=== PATIENT | male | born 1995 | race Asian ===

== ENCOUNTER 2018-11-14 10:00 | Emergency (ER) | payer OTHER ==
[2018-11-14 10:06] VITALS: BP 123/67; PULSE 80; TEMP 97; BMI 30.3
--- NOTE | 2018-11-14 10:30 | PDOC ---
History of Present Illness - General Chief Complaint: Pain Stated Complaint: PAIN Time Seen by Provider: 11/14/18 10:16 History Source: Patient Exam Limitations: No Limitations - History of Present Illness Travel History: No Initial Comments: 11/14/18 10:30 23-year-old male presents to ED with complaints of left scrotal and perianal pain for the past 2 months worsened with standing without penile discharge, difficulty urinating but does complain of a whitish substance from his anus 2 weeks ago after working out. Patient denies fever, chills redness, swelling or palpable bump to area. Patient states has been in a monogamous relationship and has no concerns for STD. Patient also denies history of variceal, hernia or hydrocele. Timing/Duration: reports: intermittent Quality: reports: mild Abdominal Pain Onset Location: reports: other (left testicle) Pain Radiation: reports: other (perineal) Activities at Onset: reports: none Aggravating Factors: improves with: Change in position Alleviating Factors: improves with: Rest Past History - Travel Traveled outside of the country in the last 30 days: No Close contact w/someone who was outside of country & ill: No - Past Medical History Allergies/Adverse Reactions: Allergies Allergy/AdvReac Type Severity Reaction Status Date / Time No Known Allergies Allergy Verified 11/14/18 10:06 COPD: No - Suicide/Smoking/Psychosocial Hx Smoking History: Never smoked Patient Lives Alone: No Lives with/in: spouse/SO Review of Systems - Review of Systems Able to Perform ROS?: No Is the patient limited Pashto proficient: No Constitutional: No: Symptoms Reported ABD/GI: No: Symptoms Reported : Yes: Pain, Testicular Pain (left). No: Discharge, Testicular Mass, Testicular Swelling, Lesions Musculoskeletal: No: Symptoms Reported Integumentary: No: Symptoms Reported Neurological: No: Symptoms reported Endocrine: No: Symptoms Reported *Physical Exam - Vital Signs Last Vital Signs Temp Pulse Resp BP Pulse Ox 97 F L 80 18 123/67 99 11/14/18 10:04 11/14/18 10:04 11/14/18 10:04 11/14/18 10:04 11/14/18 10:04 - Physical Exam General Appearance: Yes: Nourished, Appropriately Dressed. No: Apparent Distress Gastrointestinal/Abdominal: positive: Soft. negative: Tenderness Male Genitalia: positive: normal genitalia, testicular tenderness (mild left, normal cremasteric reflex). negative: discharge, testicular mass, epididymus tender, hernia Extremity: positive: Normal Capillary Refill Integumentary: positive: Other (no tenderness to perineal or rectal area. no redness or palpable masses noted) Neurologic: positive: Motor Strength 5/5 (ambulatory) Moderate Sedation - Procedure Monitoring Vital Signs: Procedure Monitoring Vital Signs Temperature 97 F L 11/14/18 10:04 Pulse Rate 80 11/14/18 10:04 Respiratory Rate 18 11/14/18 10:04 Blood Pressure 123/67 11/14/18 10:04 O2 Sat by Pulse Oximetry (%) 99 11/14/18 10:04 ED Treatment Course - RADIOLOGY Radiology Studies Ordered: Category Date Time Status SCROTUM AND CONTENTS US [US] Stat Ultrasound 11/14/18 10:21 Ordered Medical Decision Making - Medical Decision Making 11/14/18 10:41 Chief complaint: Left testicle intermittent pulling sensation to left testicle radiating to his perineal region over the past 2 months intermittently. Patient states pain began after working out but denies any and denies any previous injury to affected area. Patient also mentioned past from his rectum which I reviewed pictures which were taken by his . Temperature is noted with white shreds of toilet paper and not drainage. Exam: Mild left testicular tenderness otherwise normal healthy exam Plan: Scrotal ultrasound ordered 11/14/18 12:02 Ultrasound shows multiple punctate testicular calcifications. The testes appear unremarkable overall size and contour. There is no discrete mass lesion identified. This is very small right hydrocele noted. There is no left hydrocele noted. Epididymal structures appear unremarkable. *DC/Admit/Observation/Transfer Diagnosis at time of Disposition: Testicle pain - Discharge Dispostion Disposition: HOME Condition at time of disposition: Good - Referrals Referrals: Lupe Malik MD [Primary Care Provider] - Dexter Dominguez MD [Staff Physician] - - Patient Instructions Printed Discharge Instructions: DI for Testicular Pain Additional Instructions: Please follow up with your urologist. Please avoid movement that trigger your pain - Post Discharge Activity
== END 2018-11-14 12:17 | disposition home or self-care (01) ==
LOC: JERFT 10:00 → JER 10:00
DX: N50.812 Left testicular pain (principal)
CPT/HCPCS: 76870-TC; 99281-25

== ENCOUNTER 2018-11-24 19:42 | Emergency (ER) | payer OTHER ==
[2018-11-24 20:09] VITALS: BP 116/60; PULSE 108; TEMP 98.2; BMI 26.6
--- NOTE | 2018-11-24 20:09 | PDOC ---
Rapid Medical Evaluation Time Seen by Provider: 11/24/18 20:04 Medical Evaluation: Allergies Allergy/AdvReac Type Severity Reaction Status Date / Time No Known Allergies Allergy Verified 11/14/18 10:06 11/24/18 20:04 I have performed a brief in-person evaluation of this patient. The patient presents with a chief complaint of: lower back and perineal pain. Pt had U/s on 11/14 which showed small hydrocele. Unaqble to get appt with . Pertinent physical exam findings: deferred I have ordered the following: urine The patient will proceed to the ED for further evaluation. Discharge Disposition - Diagnosis Perineal pain in male - Referrals - Patient Instructions - Post Discharge Activity
--- NOTE | 2018-11-24 21:14 | PDOC ---
*Physical Exam - Vital Signs Last Vital Signs Temp Pulse Resp BP Pulse Ox 98.2 F 108 H 18 116/60 100 11/24/18 20:05 11/24/18 20:05 11/24/18 20:05 11/24/18 20:05 11/24/18 20:05 Medical Decision Making - Medical Decision Making 11/24/18 21:14 Patient seen by the advanced practice provider under my direct supervision. Ancillary testing reviewed as necessary. I agree with plan as outlined by the advanced practice provider. *DC/Admit/Observation/Transfer Diagnosis at time of Disposition: Perineal pain in male - Discharge Dispostion Disposition: HOME Condition at time of disposition: Stable - Referrals - Patient Instructions Additional Instructions: Thank you for choosing [facility]. It was a pleasure taking care of you. At this point, the cause of your pain is unclear Would recommend you follow-up with urology as scheduled and also f/u with your PCP. Return to the Emergency Department if your symptoms worsen or persist or have other concerning symptoms. - Post Discharge Activity
--- NOTE | 2018-11-24 22:11 | PDOC ---
History of Present Illness - General Chief Complaint: Back Pain Stated Complaint: LWR BACK PAIN/PROSTATE PAIN Time Seen by Provider: 11/24/18 20:04 History Source: Patient Exam Limitations: No Limitations Past History - Past Medical History Allergies/Adverse Reactions: Allergies Allergy/AdvReac Type Severity Reaction Status Date / Time No Known Allergies Allergy Verified 11/14/18 10:06 COPD: No - Suicide/Smoking/Psychosocial Hx Smoking History: Never smoked Have you smoked in the past 12 months: No Information on smoking cessation initiated: No Hx Alcohol Use: No Drug/Substance Use Hx: No *Physical Exam - Vital Signs Last Vital Signs Temp Pulse Resp BP Pulse Ox 98.2 F 108 H 18 116/60 100 11/24/18 20:05 11/24/18 20:05 11/24/18 20:05 11/24/18 20:05 11/24/18 20:05 - Physical Exam General Appearance: No: Apparent Distress Respiratory/Chest: positive: Lungs Clear, Normal Breath Sounds. negative: Respiratory Distress Cardiovascular: positive: Regular Rhythm, Regular Rate, S1, S2. negative: Murmur Gastrointestinal/Abdominal: positive: Normal Bowel Sounds, Soft. negative: Tender, Distended, Guarding, Rebound Male Genitalia: positive: normal genitalia, other (Perineal exam unremarkable ( no unusual rashes, lesions, open wounds/cuts or other anomaly noted)). negative : discharge, testicular tenderness Integumentary: positive: Normal Color Neurologic: positive: Alert, Normal Mood/Affect Moderate Sedation - Procedure Monitoring Vital Signs: Procedure Monitoring Vital Signs Temperature 98.2 F 11/24/18 20:05 Pulse Rate 108 H 11/24/18 20:05 Respiratory Rate 18 11/24/18 20:05 Blood Pressure 116/60 11/24/18 20:05 O2 Sat by Pulse Oximetry (%) 100 11/24/18 20:05 Medical Decision Making - Medical Decision Making 23 y/o M with no sig pmh presents with perineal pain and occasional itching x 1 month. Saw his PCP and was given ?cream (possibly antifungal) which did not help. Also tried Hydrocortisone which did not help. Was in ER last week for similar complaint and had testicular sono with no acute findings noted. Patient denies fever, sob, cp, abd pain, n/v/d, urinary complaints, penile discharge, testicular pain, penile pain, unusual rashes. Patient was referred to urology on last ER visit and states appointment is not until 12/06 PE unremarkable Unclear cause of sxs - advised f/u with urology and PCP for now D/W Dr. Marinelli 11/24/18 22:08 *DC/Admit/Observation/Transfer Diagnosis at time of Disposition: Perineal pain in male - Discharge Dispostion Disposition: HOME Condition at time of disposition: Stable Decision to Admit order: No - Referrals - Patient Instructions Additional Instructions: Thank you for choosing [facility]. It was a pleasure taking care of you. At this point, the cause of your pain is unclear Would recommend you follow-up with urology as scheduled and also f/u with your PCP. Return to the Emergency Department if your symptoms worsen or persist or have other concerning symptoms. - Post Discharge Activity
== END 2018-11-24 22:13 | disposition home or self-care (01) ==
LOC: JER 19:42
DX: K90.49 Malabsorption due to intolerance, not elsewhere classified (principal)
CPT/HCPCS: 99282-25

== ENCOUNTER 2018-11-25 19:30 | Emergency (ER) | payer OTHER ==
[2018-11-25 19:36] VITALS: BP 144/81; PULSE 98; TEMP 97.8; BMI 29.0
--- NOTE | 2018-11-25 19:38 | PDOC ---
History of Present Illness - General History Source: Patient Exam Limitations: No Limitations - History of Present Illness Initial Comments: 11/25/18 20:27 The patient is a 23 year old male, with no significant past medical history, who presents to the ED complaining of abdominal pain, rectal pain with discharge , constipation, nausea and vomit for almost a month. The patient notes that he came to the ED on 11/14/18 and 11/24/18 for similar symptoms and was discharged after improvement of symptoms. He reports that his abdominal pain is localized in the left upper quadrant, rating it a 4/10 in severity. He notes that the pain radiates to his lower abdomen. He denies any modifying factors. He denies any blood discharge from the rectum. He notes that his vomit is nonbilious and nonbloody. He notes that he traveled to [facility] 5 months ago. He reports that he was 8 months ago and denies any rectal intercourse. The patient denies chest pain, shortness of breath, headache and dizziness. Denies fever, chills, diarrhea, dysuria, frequency, urgency and hematuria. Allergies: None Past surgical history: None reported Social History: No alcohol, tobacco or drug use reported <Eduar Hernandez - Last Filed: 11/25/18 20:27> <Jesica Glaser - Last Filed: 11/25/18 23:34> - General Chief Complaint: Pain Stated Complaint: ABD, RECTAL PAIN Time Seen by Provider: 11/25/18 19:38 Past History <Eduar Hernandez - Last Filed: 11/25/18 20:27> - Past Medical History COPD: No - Immunization History Immunization Up to Date: Yes - Suicide/Smoking/Psychosocial Hx Smoking History: Current some day smoker Have you smoked in the past 12 months: Yes Number of Cigarettes Smoked Daily: 1 Information on smoking cessation initiated: Yes Hx Alcohol Use: No Drug/Substance Use Hx: No <Jesica Glaser - Last Filed: 11/25/18 23:34> - Past Medical History Allergies/Adverse Reactions: Allergies Allergy/AdvReac Type Severity Reaction Status Date / Time No Known Allergies Allergy Verified 11/25/18 19:31 Home Medications: Ambulatory Orders NK [No Known Home Medication] 11/24/18 Review of Systems - Review of Systems Able to Perform ROS?: Yes Comments:: 11/25/18 20:27 GENERAL/CONSTITUTIONAL: No fever or chills. No weakness. HEAD, EYES, EARS, NOSE AND THROAT: No change in vision. No ear pain or discharge. No sore throat. GASTROINTESTINAL: (+) Abdominal pain, nausea, vomiting, constipation, Rectal pain with discharge. No diarrhea GENITOURINARY: No dysuria, frequency, or change in urination. CARDIOVASCULAR: No chest pain or shortness of breath. RESPIRATORY: No cough, wheezing, or hemoptysis. MUSCULOSKELETAL: No joint or muscle swelling or pain. No neck or back pain. SKIN: No rash NEUROLOGIC: No headache, vertigo, loss of consciousness, or change in strength/ sensation. ENDOCRINE: No increased thirst. No abnormal weight change. HEMATOLOGIC/LYMPHATIC: No anemia, easy bleeding, or history of blood clots. ALLERGIC/IMMUNOLOGIC: No hives or skin allergy. <Eduar Hernandez - Last Filed: 11/25/18 20:27> *Physical Exam - Vital Signs Last Vital Signs Temp Pulse Resp BP Pulse Ox 97.8 F 98 H 18 144/81 100 11/25/18 19:30 11/25/18 19:30 11/25/18 19:30 11/25/18 19:30 11/25/18 19:30 - Physical Exam Comments: 11/25/18 20:27 Constitutional: Awake, alert, oriented. No acute distress. Head: Normocephalic. Atraumatic Eyes: PERRL. EOMI. Conjunctivae are not pale. ENT: Mucous membranes are moist and intact. Posterior pharynx without exudates or erythema. Uvula midline. Neck: Supple. Full ROM. No lymphadenopathy. Cardiovascular: Regular rate. Regular rhythm. S1, S2 regular. Distal pulses are 2+ and symmetric. Pulmonary/Chest: No evidence of respiratory distress. Clear to auscultation bilaterally No wheezing, rales or rhonchi. Abdominal: (+) Diffused lower quadrant tenderness. Soft and non-distended. No rebound, guarding or rigidity. No organomegaly. No palpable masses. Good bowel sounds. Back: No CVA tenderness. Musculoskeletal: No edema. No cyanosis. No clubbing. Full range of motion in all extremities. Nocalf tenderness. Radial/pedal pulses are intact and 2+ bilaterally Skin: Skin is warm and dry. No petechiae. No purpura. Neurological: Alert and oriented to person, place, and time. Cranial nerves II -XII are grossly intact. Normal speech. Strength is grossly symmetric. No sensory deficits. <Eduar Hernandez - Last Filed: 11/25/18 20:27> - Vital Signs Last Vital Signs Temp Pulse Resp BP Pulse Ox 97.8 F 98 H 18 144/81 100 11/25/18 19:30 11/25/18 19:30 11/25/18 19:30 11/25/18 19:30 11/25/18 19:30 <Jesica Glaser - Last Filed: 11/25/18 23:34> Moderate Sedation - Procedure Monitoring Vital Signs: Procedure Monitoring Vital Signs Temperature 97.8 F 11/25/18 19:30 Pulse Rate 98 H 11/25/18 19:30 Respiratory Rate 18 11/25/18 19:30 Blood Pressure 144/81 11/25/18 19:30 O2 Sat by Pulse Oximetry (%) 100 11/25/18 19:30 <Eduar Hernandez - Last Filed: 11/25/18 20:27> - Procedure Monitoring Vital Signs: Procedure Monitoring Vital Signs Temperature 97.8 F 11/25/18 19:30 Pulse Rate 98 H 11/25/18 19:30 Respiratory Rate 18 11/25/18 19:30 Blood Pressure 144/81 11/25/18 19:30 O2 Sat by Pulse Oximetry (%) 100 11/25/18 19:30 <Jescia Glaser - Last Filed: 11/25/18 23:34> ED Treatment Course - LABORATORY CBC & Chemistry Diagram: 11/25/18 20:40 11/25/18 20:40 <Jesica Glaser - Last Filed: 11/25/18 23:34> Medical Decision Making - Medical Decision Making 11/25/18 21:09 stool guaiac negative; WBC normal; Hb/HCT normal. UA normal. Pt tells me that he scheduled a GI appt for Thursday/. 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 If chem is normal, he will be discharged, as his exam is normal. 11/25/18 23:33 All labs normal; pt will be reassured and he will follow with PMD and outpatient GI; he was advised to eat more fruits and veggies and to refrain from gluten foods. <Jesica Glaser - Last Filed: 11/25/18 23:34> *DC/Admit/Observation/Transfer - Attestations Scribe Attestion: 11/25/18 20:27 Documentation prepared by Eduar Hernandez, acting as dental assistant medical assistant for Jesica Glaser MD <Eduar Hernandez - Last Filed: 11/25/18 20:27> - Discharge Dispostion Decision to Admit order: No <Jesica Glaser - Last Filed: 11/25/18 23:34> Diagnosis at time of Disposition: Rectal irritation, Food intolerance in adult - Discharge Dispostion Disposition: HOME Condition at time of disposition: Stable - Referrals Referrals: Lupe Malik MD [Primary Care Provider] - Pancho Randolph MD [Staff Physician] - - Patient Instructions - Post Discharge Activity
[2018-11-25 20:53] LABS: BASO % 0.4 % (0-2.0); EOS % 2.5 % (0-4.5); HEMATOCRIT 48.1 % (35.4-49); HEMOGLOBIN 15.9 GM/dl (11.7-16.9); LYMPH % 29.7 % (8-40); MCH 29.4 pg (25.7-33.7); MEAN CELL VOLUME 89.1 fl (80-96); MEAN PLT VOLUME 7.2 fl (7.5-11.1); MONO % 4.9 % (3.8-10.2); NEUT % 62.5 % (42.8-82.8); PH,URINE 6.5 (4.5-8); PLATELET COUNT 300 K/MM3 (134-434); RBC 5.39 M/mm3 (4.00-5.60); RDW 12.2 % (11.9-15.9); URINE APPEARANCE Clear; URINE BILIRUBIN Negative (NEGATIVE); URINE COLOR Yellow; URINE GLUCOSE (UA) Negative (NEGATIVE); URINE KETONE Negative (NEGATIVE); URINE LEUK ESTERASE Negative (NEGATIVE); URINE NITRITE Negative (NEGATIVE); URINE PROTEIN Negative (NEGATIVE); URINE UROBILINOGEN 0.2 (0.2-1.0); WHITE BLOOD COUNT 7.1 K/mm3 (4.0-10.8)
[2018-11-25 21:13] LABS: ALBUMIN 4.9 g/dl (3.4-5.0); ALK PHOS 85 U/L (45-117); ANION GAP 7 MMOL/L (8-16); BILIRUBIN,TOTAL 0.4 mg/dl (0.2-1); BLOOD UREA NITROGEN 13 mg/dl (7-18); CALCIUM 9.2 mg/dl (8.5-10); CHLORIDE 102 mmol/L (98-107); CO2 27 mmol/L (21-32); CREATININE 1.1 mg/dl (0.55-1.3); GLUCOSE,RANDOM 96 mg/dl (74-106); POTASSIUM 3.6 mmol/L (3.5-5.1); SGOT/AST 24 U/L (15-37); SGPT/ALT 26 U/L (13-61); SODIUM 136 mmol/L (136-145); TOT PROT 7.8 g/dl (6.4-8.2)
== END 2018-11-25 21:41 | disposition home or self-care (01) ==
LOC: FER 19:30
DX: K62.89 Other specified diseases of anus and rectum (principal); K90.49 Malabsorption due to intolerance, not elsewhere classified; F17.210 Nicotine dependence, cigarettes, uncomplicated
CPT/HCPCS: 36415; 80053; 81003; 82272; 85025; 99283-25

== ENCOUNTER 2019-03-18 21:02 | Emergency (ER) | payer OTHER ==
--- NOTE | 2019-03-18 21:10 | PDOC ---
Rapid Medical Evaluation Time Seen by Provider: 03/18/19 21:09 Medical Evaluation: Allergies Allergy/AdvReac Type Severity Reaction Status Date / Time No Known Allergies Allergy Verified 11/25/18 19:31 03/18/19 21:09 HPI: R knee pain s/p fall 3 days ago while playing cricket PE: No gross deficits ORDERS: R knee x-ray 03/18/19 21:10 Discharge Disposition - Diagnosis Right knee pain - Referrals - Patient Instructions - Post Discharge Activity
[2019-03-18 21:15] VITALS: BP 134/66; PULSE 72; TEMP 98; BMI 28.4
[2019-03-18] MEDS ORDERED: IBUPROFEN 400 MG TABLET (FP) PO ONE ×2 (21:58→22:19)
--- NOTE | 2019-03-18 22:13 | PDOC ---
History of Present Illness - General Chief Complaint: Pain, Acute Stated Complaint: KNEE PAIN Time Seen by Provider: 03/18/19 21:09 History Source: Patient Exam Limitations: No Limitations Past History - Travel Traveled outside of the country in the last 30 days: No Close contact w/someone who was outside of country & ill: No - Past Medical History Allergies/Adverse Reactions: Allergies Allergy/AdvReac Type Severity Reaction Status Date / Time No Known Allergies Allergy Verified 03/18/19 21:13 Home Medications: Ambulatory Orders Ibuprofen 800 mg PO TID #30 tablet 03/18/19 COPD: No - Immunization History Immunization Up to Date: Yes - Suicide/Smoking/Psychosocial Hx Smoking History: Current every day smoker Have you smoked in the past 12 months: No Number of Cigarettes Smoked Daily: 1 Information on smoking cessation initiated: No Hx Alcohol Use: No Drug/Substance Use Hx: No Review of Systems - Review of Systems Able to Perform ROS?: Yes Comments:: 03/18/19 21:56 CONSTITUTIONAL: Absent: fever, chills, diaphoresis, generalized weakness, malaise, loss of appetite HEENT: Absent: rhinorrhea, nasal congestion, throat pain, throat swelling, difficulty swallowing, mouth swelling, ear pain, eye pain, visual Changes CARDIOVASCULAR: Absent: chest pain, loss of consciousness, palpitations, irregular heart rate, peripheral edema RESPIRATORY: Absent: cough, shortness of breath, dyspnea with exertion, orthopnea, wheezing, stridor, hemoptysis GASTROINTESTINAL: Absent: abdominal pain, abdominal distension, nausea, vomiting, diarrhea, constipation, melena, hematochezia GENITOURINARY: Absent: dysuria, frequency, urgency, hesitancy, hematuria, flank pain, genital pain MUSCULOSKELETAL: Present: R knee pain Absent: myalgia, arthralgia, joint swelling SKIN: Absent: rash, itching, pallor HEMATOLOGIC/IMMUNOLOGIC: Absent: easy bleeding, easy bruising, lymphadenopathy, frequent infections ENDOCRINE: Absent: unexplained weight gain, unexplained weight loss, heat intolerance, cold intolerance NEUROLOGIC: Absent: headache, focal weakness or paresthesias, dizziness, unsteady gait, seizure, mental status changes, bladder or bowel incontinence PSYCHIATRIC: Absent: anxiety, depression, suicidal or homicidal ideation, hallucinations. Is the patient limited Kazakh proficient: No *Physical Exam - Vital Signs Last Vital Signs Temp Pulse Resp BP Pulse Ox 98.0 F 72 16 134/66 100 03/18/19 21:13 03/18/19 21:13 03/18/19 21:13 03/18/19 21:13 03/18/19 21:13 - Physical Exam Comments: 03/18/19 22:49 GENERAL: The patient is awake, alert, and fully oriented, in no acute distress. HEAD: Normal with no signs of trauma. EYES: Pupils equal, round and reactive to light, extraocular movements intact, sclera anicteric, conjunctiva clear. EXTREMITIES: TTP of the R lateral knee. (+) Carol's test of the R knee. (-) Anterior/posterior draw testing. Normal range of motion, no edema. NEUROLOGICAL: Normal speech, normal gait. PSYCH: Normal mood, normal affect. SKIN: Warm, Dry, normal turgor, no rashes or lesions noted. Medical Decision Making - Medical Decision Making 03/18/19 23:03 The patient is a 24-year-old male past medical history who presents with right knee pain status post falling 3 days ago of pancreatic it. He states he landed on the right knee and has felt unsteady since. He states it is worse when he walks up and down the steps. Denies fevers, chills, nausea and tingling to the affected extremity. A/P: Right knee pain On exam patient with positive McBurney's test on the right side. Negative anterior drawer posterior draw X-rays negative for fracture Suspect a possible meniscus injury Patient placed in knee immobilizer and given crutches made weightbearing as tolerated. Ortho follow-up given. Patient told to follow up next week. Discharge home I discussed the physical exam findings, ancillary test results and final diagnoses with the patient. I answered all of the patient's questions. The patient was satisfied with the care received and felt comfortable with the discharge plan and treatment plan. The Patient agrees to follow up with the primary care physician/specialist within 24-72 hours. Return precautions were given. *DC/Admit/Observation/Transfer Diagnosis at time of Disposition: Right knee pain Qualifiers: Chronicity: acute Qualified Code(s): M25.561 - Pain in right knee - Discharge Dispostion Disposition: HOME Condition at time of disposition: Stable Decision to Admit order: No - Referrals Referrals: Darryl Bah DO [Staff Physician] - - Patient Instructions Printed Discharge Instructions: DI for Knee Pain Additional Instructions: You were evaluated for your knee pain today Your x-ray did not show any broken bones. I suspect you hurt your meniscus based on your exam findings. Please take Motrin 800 mg every 8 hours for pain and swelling. Please wear the knee immobilizer and use the crutches Follow-up with orthopedics on Thursday. A referral has been provided for you. Return to the ER for any new or worsening symptoms - Post Discharge Activity Forms/Work/School Notes: Back to Work
== END 2019-03-18 22:33 | disposition home or self-care (01) ==
LOC: JERFT 21:02
PROC: 2W3QXYZ Immobilization of Right Lower Leg using Other Device (ICD-10-PCS; principal; 2019-03-18)
DX: M25.561 Pain in right knee (principal); W18.39XA Other fall on same level, initial encounter; Y93.69 Activity, other involving other sports and athletics played as a team or group; Y92.328 Other athletic field as the place of occurrence of the external cause; Y99.8 Other external cause status
CPT/HCPCS: 73562-TC-RT-FY; 99281-25